=== PATIENT | female | born 1995 | race Caucasian/White ===

== ENCOUNTER 2022-08-19 17:59 | Emergency (ER) | payer OTHER ==
[~2022-08-19] VITALS: Ht 170.2 cm; Wt 68.0 kg
[2022-08-19] MEDS ORDERED: IBUPROFEN 600MG TABLET PO STA (18:22)
[2022-08-19 19:15] VITALS: BP 124/79
== END 2022-08-19 19:22 | disposition home or self-care (01) ==
LOC: ER 17:59
DX: R07.9 Chest pain, unspecified (principal)
CPT/HCPCS: 71045; 93005; 99283